=== PATIENT | male | born 2000 | race Two or more races ===

== ENCOUNTER 2022-03-18 22:03 | Emergency (ER) | payer SELFPAY ==
[~2022-03-18] VITALS: Ht 182.9 cm; Wt 74.8 kg
[2022-03-18] MEDS ORDERED: IBUPROFEN 400 MG TABLET ONE (22:17)
[2022-03-18] MEDS ORDERED: IBUPROFEN 400 MG TABLET PO ONE (22:30)
[2022-03-19 01:07] VITALS: BP 121/74
--- NOTE | 2022-03-19 01:07 | NUR ---
Patient discharged to home in stable condition. Written and verbal after care instructions given. Patient verbalizes understanding of instruction.
== END 2022-03-19 01:07 | disposition home or self-care (01) ==
LOC: ER 22:06
DX: S99.812A Other specified injuries of left ankle, initial encounter (principal); M25.472 Effusion, left ankle; I10 Essential (primary) hypertension; V29.9XXA Motorcycle rider (driver) (passenger) injured in unspecified traffic accident, initial encounter; Y93.89 Activity, other specified; Y92.89 Other specified places as the place of occurrence of the external cause; Y99.8 Other external cause status
CPT/HCPCS: 73610-TC; 73630-TC